=== PATIENT | female | born 1985 | race Caucasian/White ===

== ENCOUNTER 2019-06-22 12:57 | Outpatient (CLI) | payer OTHER ==
--- NOTE | 2019-06-22 16:04 | Ultrasound Report ---
Reason: POSITIVE TEST Procedure Date: 06/22/2019 Accession Number: [id number] / [id number] Procedure: US - OB First Trimester CPT Code: Final Report FULL RESULT: EXAM: FIRST TRIMESTER OBSTETRIC ULTRASOUND (Less than 11 weeks) EXAM DATE: 06/22/2019 02:21 PM. CLINICAL HISTORY: POSITIVE TEST. LMP: 05/02/2019. COMPARISONS: None. TECHNIQUE: Transabdominal and transvaginal ultrasound examination with static image documentation. CLINICAL DATES: EGA 7 weeks 2 days with DUSTIN 02/06/2020 based on LMP.. ASSESSMENT: Gestational Sac: Single intrauterine. Mean gestational sac diameter: 27.4 mm = 7 weeks 5 days. Embryo: CRL (crown-rump length) 10.3 mm = 7 weeks 1 day. Cardiac activity: 153 beats per minute. Yolk sac: 4.4 mm. Amniotic fluid: Not accurately assessed at this gestational age. Early placenta: Not visible at this gestational age. Other: No perigestational fluid collection demonstrated. MATERNAL STRUCTURES: Uterus: Anteverted. Possible 2 x 1.8 x 2.8 cm isoechoic anterior uterine fibroid.. Cervix: Closed. Right Ovary/Adnexa: The ovary measures 2.6 x 1.5 x 2.4 cm, volume 4.8 cc. Unremarkable. Left Ovary/Adnexa: The ovary measures 2.4 x 1.2 x 1.6 cm, volume 2.4 cc. Unremarkable. Free Fluid: None. Other: None. IMPRESSION: 1. Single intrauterine at EGA 7 weeks 1 day with DUSTIN 02/07/2020 based on crown-rump length, which is concordant with clinical dates. 2. Assigned dating is DUSTIN 02/06/2020 based on LMP. DUY
--- NOTE | 2019-06-23 06:21 | Ultrasound Report ---
Reason: TEST POSITIVE Procedure Date: 06/22/2019 Accession Number: [id number] / [id number] Procedure: US - OB Transvaginal CPT Code: Final Report FULL RESULT: EXAM: FIRST TRIMESTER OBSTETRIC ULTRASOUND (Less than 11 weeks) EXAM DATE: 06/22/2019 02:21 PM. CLINICAL HISTORY: POSITIVE TEST. LMP: 05/02/2019. COMPARISONS: None. TECHNIQUE: Transabdominal and transvaginal ultrasound examination with static image documentation. CLINICAL DATES: EGA 7 weeks 2 days with DUSTIN 02/06/2020 based on LMP.. ASSESSMENT: Gestational Sac: Single intrauterine. Mean gestational sac diameter: 27.4 mm = 7 weeks 5 days. Embryo: CRL (crown-rump length) 10.3 mm = 7 weeks 1 day. Cardiac activity: 153 beats per minute. Yolk sac: 4.4 mm. Amniotic fluid: Not accurately assessed at this gestational age. Early placenta: Not visible at this gestational age. Other: No perigestational fluid collection demonstrated. MATERNAL STRUCTURES: Uterus: Anteverted. Possible 2 x 1.8 x 2.8 cm isoechoic anterior uterine fibroid.. Cervix: Closed. Right Ovary/Adnexa: The ovary measures 2.6 x 1.5 x 2.4 cm, volume 4.8 cc. Unremarkable. Left Ovary/Adnexa: The ovary measures 2.4 x 1.2 x 1.6 cm, volume 2.4 cc. Unremarkable. Free Fluid: None. Other: None. IMPRESSION: 1. Single intrauterine at EGA 7 weeks 1 day with DUSTIN 02/07/2020 based on crown-rump length, which is concordant with clinical dates. 2. Assigned dating is DUSTIN 02/06/2020 based on LMP. DUY
== END 2019-06-22 12:58 | disposition home or self-care (01) ==
LOC: DI 12:57
PROVIDERS: ATTEND Obstetrics & Gynecology
DX: Z32.01 Encounter for pregnancy test, result positive (principal)
CPT/HCPCS: 76801; 76817

== ENCOUNTER 2019-07-18 07:00 | Outpatient (CLI) | payer OTHER ==
[2019-07-18 17:10] LABS: MUDS CUTOFF CONCENTRATIONS CUTOFF CONC BELOW:
[2019-07-18 17:13] LABS: BILIRUBIN,URINE NEGATIVE (NEGATIVE); GLUCOSE, URINE (UA) NEGATIVE (NEGATIVE); KETONES,URINE (UA) NEGATIVE (NEGATIVE); LEUKOCYTE ESTERASE, URINE NEGATIVE (NEGATIVE); NITRITE,URINE NEGATIVE (NEGATIVE); OCCULT BLOOD,URINE NEGATIVE (NEGATIVE); PROTEIN,URINE NEGATIVE (NEGATIVE); UROBILINOGEN,URINE 0.2 (NORMAL) E.U./dL (NORMAL)
[2019-07-18 17:20] LABS: CLARITY,URINE CLOUDY (CLEAR)
[2019-07-18 17:21] LABS: BACTERIA,URINE Many /HPF (None Seen); RBC,URINE 0-5 /HPF (0-5); SQUAMOUS EPITHELIAL CELL,UR MANY Squamous (<= Few)
[2019-07-18 17:22] LABS: AMPHETAMINE SCREEN,URINE NEGATIVE (NEGATIVE); BENZODIAZEPINES SCREEN, URINE NEGATIVE (NEGATIVE); COCAINE SCREEN URINE NEGATIVE (NEGATIVE); METHADONE SCREEN, URINE NEGATIVE (NEGATIVE); METHAMPHETAMINES SCREEN, URINE NEGATIVE (NEGATIVE); OPIATE SCREEN, URINE NEGATIVE (NEGATIVE); OXYCODONE SCREEN, URINE NEGATIVE (NEGATIVE); PROPOXYPHENE SCREEN, URINE NEGATIVE (NEGATIVE); TRICYCLIC ANTIDEPRESSANT,URINE NEGATIVE (NEGATIVE)
[2019-07-18 20:42] LABS: TRICHOMONAS VAGINALIS DNA NEGATIVE (NEGATIVE)
== END 2019-07-18 23:59 | disposition home or self-care (01) ==
LOC: LAB.R 07:00
PROVIDERS: ATTEND Obstetrics & Gynecology
DX: Z34.90 Encounter for supervision of normal pregnancy, unspecified, unspecified trimester (principal)
CPT/HCPCS: 80306; 81001; 81003; 87086; 87491; 87591; 87661

== ENCOUNTER 2019-08-15 08:00 | Outpatient (CLI) | payer OTHER ==
[2019-08-15 13:47] LABS: BASOPHILS # (AUTO) 0.1 10^3/uL (0.0-0.1); BASOPHILS % (AUTO) 0.5 %; EOSINOPHILS # (AUTO) 0.5 10^3/uL (0.0-0.7); EOSINOPHILS % (AUTO) 5.1 %; HGB - HEMOGLOBIN 11.9 g/dL (12.0-16.0); LYMPHOCYTES # (AUTO) 2.3 10^3/uL (1.5-3.5); LYMPHOCYTES % (AUTO) 21.9 %; MEAN CORPUSCULAR HGB CONC 33.2 g/dL (32.0-36.0); MEAN CORPUSCULAR VOLUME 87.1 fL (81.0-99.0); MEAN PLATELET VOLUME 10.2 fL (7.9-10.8); MONOCYTES # (AUTO) 0.6 10^3/uL (0.0-1.0); NEUTROPHILS % (AUTO) 65.9 %; PLT - PLATELET COUNT 249 10^3/uL (130-450); RED BLOOD COUNT 4.11 10^6/uL (4.20-5.40); RED CELL DISTRIBUTION WIDTH 13.7 % (12.0-15.0); WHITE BLOOD COUNT 10.7 x10^3/uL (4.8-10.8)
[2019-08-16 12:14] LABS: HIV AG/AB 4TH GEN NON-REACTIVE (NON-REACTIVE)
[2019-08-16 13:00] LABS: HEPATITIS B SURFACE ANTIGEN NON-REACTIVE (NON-REACTIVE)
== END 2019-08-15 23:59 | disposition home or self-care (01) ==
LOC: LAB.WCP 08:00
PROVIDERS: ATTEND Obstetrics & Gynecology
DX: Z34.90 Encounter for supervision of normal pregnancy, unspecified, unspecified trimester (principal); Z36.82 Encounter for antenatal screening for nuchal translucency
CPT/HCPCS: 36415; 81511; 81599; 85025; 86592; 86762; 86850; 86900; 86901; 87340; 87389

== ENCOUNTER 2019-09-07 12:00 | Outpatient (CLI) | payer OTHER ==
--- NOTE | 2019-09-07 16:32 | Ultrasound Report ---
PROCEDURE: OB Detailed Eval INDICATIONS: SUPERVISION OF NORMAL OUTSIDE/PRIOR DATING DATA: Last menstrual period (LMP): 05/02/2019. LMP-based estimated date of delivery (DUSTIN): 02/06/2020. First dating scan (date and location): 06/22/2019. Estimated date of delivery (DUSTIN) from first dating scan: 02/06/2020. TECHNIQUE: Real-time scanning was performed of the fetus, with image documentation and biometric measurements. Endovaginal scanning: Not performed. Examination is somewhat limited by early gestational age. COMPARISON: 06/22/2019. FINDINGS: General: A single living intrauterine gestation is present. Presentation: Variable. Placenta: Placental position is anterior, without previa. Amniotic fluid index: 16 cm, normal for gestational age. heart rate: 157 beats per minute. Maternal cervical canal: 5.2 cm long; normal length is 2.5 cm or more. biometrics: Biparietal diameter: 4.3 cm. 19 weeks 1 day. Head circumference: 15.6 cm. 18 weeks 4 days. Abdominal circumference: 12.5 cm. 18 weeks 1 day. Femur length: 2.7 cm. 18 weeks 1 day. Estimated gestational age from initial scan: 18 weeks 4 days. Composite gestational age from present scan: 18 weeks 2 days. Estimated weight and percentile: 2 29 g. 41st percentile. Measurement variability in biometric dating: +/- 10 days from 12-20 weeks gestation, +/- 2 weeks from 20-30 weeks gestation, +/- 3 weeks at 30 weeks gestation or later. Anatomic survey: Neuro: Ventricles are normal at less than 10 mm. Cisterna magna is normal at 3-11 mm. Cerebellum i s normal in size and morphology. Nuchal skin fold: Normal at less than 6 mm between 14 and 20 weeks gestational age. Face: Nose and lips, facial profile are normal. Spine: No evidence for spina bifida. Heart: 4-chambered heart is present, with normal ventricular outflow tracts. Diaphragm: Diaphragm is intact. Stomach: Left-sided stomach is present. Kidneys: No hydronephrosis. Normal is less than 5 mm in 2nd trimester, less than 7 mm in 3rd trimester. Cord: 3 vessel cord has orthotopic insertion. Bladder: Normal in size. Extremities: All 4 extremities are visualized. IMPRESSION: 1. Thomas living intrauterine at 18 weeks 2 days based on today's ultrasound. This is co ncordant with the first trimester ultrasound. There is expected interval growth. 2. Normal placenta and amniotic fluid. 3. Normal and complete anatomic survey. Reviewed by: Homero Brock MD on 09/07/2019 4:31 PM PDT Approved by: Homero Brock MD on 09/07/2019 4:31 PM PDT Station ID: [id number]
== END 2019-09-07 12:01 | disposition home or self-care (01) ==
LOC: DI 12:00
PROVIDERS: ATTEND Obstetrics & Gynecology
DX: Z34.90 Encounter for supervision of normal pregnancy, unspecified, unspecified trimester (principal)
CPT/HCPCS: 76811